=== PATIENT | male | born 1990 | race Caucasian/White ===

== ENCOUNTER 2016-11-27 20:10 | Emergency (ER) | payer SELFPAY ==
[~2016-11-27] VITALS: Ht 165.1 cm; Wt 60.0 kg
[2016-11-27] MEDS ORDERED: IOHEXOL 350 MG/ML 10 ML VIAL (for RAD DIAG) IVCONTRAST ONE (20:11)
[2016-11-27 20:12] VITALS: BP 143/86; PULSE 99; RESP 16; TEMP 98.6; O2SAT 99
[2016-11-27 21:44] VITALS: RESP 18
[2016-11-27] MEDS ORDERED: SODIUM CHLOR 0.9% 1000 ML INJ 1,000 ML IV ONE (21:45)
[2016-11-27] MEDS ORDERED: ONDANSETRON HCL 4 MG/2 ML VIAL IV ONE (21:45)
--- NOTE | 2016-11-27 21:47 | PD ---
HPI Chief Complaint: Abdominal Pain Time Seen by Provider: 21:41 Travel History International Travel<30 days: No Contact w/Intl Traveler<30days: No Traveled to known affect area: No History of Present Illness HPI The patient is a 26 year old male who presents to the [facility] emergency department with a history of abdominal pain that began 1 week ago. It has been constant. The pain is sharp in character. The patient reports the pain is a 4 out of 10 in severity when he is lying still and a 6 out of 10 in severity when he is moving around at work. He denies any trauma or injury associated with this. He reports that he has had loose stool 1 time per day associated with it. The patient reports that his stool is brown in color. He denies having any mucus or blood in his stool. He denies being on any antibiotic recently, having any sick contacts, foreign travel, or unusual food intake. He denies any recent camping. The patient reports that his appetite has been normal. His last meal was at 5 PM. Review of systems otherwise, the patient denies having any recent fevers, cough, congestion, neck pain, chest pain, shortness of breath, vomiting, urinary symptoms, testicle pain or swelling, or neurologic symptoms. [facility] Past Medical History Narrative Medical The patient's past medical history is significant for Head injury at 14 years of age. Medical History: Denies Significant Hx Tetanus Vaccination: > 5 Years Influenza Vaccination: No Past Surgical History Surgical History: No Previous Surgery Social History Alcohol Use: No Tobacco Use: No Substance Use: No Allergies-Medications (Allergen,Severity, Reaction): Coded Allergies: No Known Allergies (Verified Allergy, Unknown, 11/27/16) Reported Meds & Prescriptions Reported Meds & Active Scripts Active Flexeril (Cyclobenzaprine HCl) 5 Mg Tab 5 Mg PO TID PRN EC-Naprosyn (Naproxen) 500 Mg Tabdr 500 Mg PO BID PRN Narrative Medication None Review of Systems Except as stated in HPI: all other systems reviewed are Neg General / Constitutional: No: Fever Eyes: No: Visual changes HENT: No: Headaches Cardiovascular: No: Chest Pain or Discomfort Respiratory: No: Shortness of Breath Gastrointestinal: Positive: Diarrhea, Abdominal Pain, Changes in Bowel Habits, No: Nausea, Vomiting, Indigestion, Loss of Appetite Genitourinary: No: Urgency, Frequency, Dysuria, Flank Pain Musculoskeletal: No: Pain Skin: No Rash Neurologic: No: Weakness, Focal Abnormalities, Change in Mentation, Slurred Speech, Sensory Disturbance Psychiatric: No: Depression Endocrine: No: Polydipsia Hematologic/Lymphatic: No: Easy Bruising Physical Exam Narrative General: The patient is a well-developed well-nourished male in no acute distress Head and Neck exam: Head is normocephalic atraumatic. Eyes: EOMI, pupils are equal round and reactive to light. Nose: Midline septum with pink mucous membranes Mouth: Dentition unremarkable. Moist mucus membranes. Posterior oropharynx is not erythematous. No tonsillar hypertrophy. Uvula midline. Airway patent. Neck: No palpable lymphadenopathy. No nuchal rigidity. No thyromegaly. Cardiovascular: Regular rate and rhythm without murmurs, gallops, or rubs. No pulse deficit to the extremities. Lungs: Clear to auscultation bilaterally. No wheezes, rhonchi, or rales. Abdomen: Soft, with tenderness on palpation in the right lower quadrant of the abdomen. No guarding, rebound, or rigidity. Normal bowel sounds are audible. Negative Causey's sign. Extremities: No clubbing, cyanosis, or edema. 2+ pulses in all 4 extremities. No calf tenderness on palpation. Back: No spinous process tenderness to palpation. No costovertebral angle tenderness to palpation. Neurologic Exam: Grossly nonfocal. Skin Exam: No rash noted. Intact skin that is warm and dry. Data Data Last Documented VS Vital Signs Date Time Temp Pulse Resp B/P (MAP) Pulse Ox O2 Delivery O2 Flow Rate FiO2 11/28/16 01:01 11/27/16 23:35 84 16 100 Room Air 11/27/16 20:12 98.6 Orders Orders Complete Blood Count With Diff (11/27/16 21:42) Comprehensive Metabolic Panel (11/27/16 21:42) C-Reactive Protein (Crp) (11/27/16 21:42) Lipase (11/27/16 21:42) Urinalysis - C+S If Indicated (11/27/16 21:42) Magnesium (Mg) (11/27/16 21:42) Ct Abd/Pel W Iv Contrast(Rout) (11/27/16 21:42) Iv Access Insert/Monitor (11/27/16 21:42) Ecg Monitoring (11/27/16 21:42) Oximetry (11/27/16 21:42) Sodium Chlor 0.9% 1000 Ml Inj (Ns 1000 M (11/27/16 21:45) Ondansetron Inj (Zofran Inj) (11/27/16 21:45) Iohexol 350 Inj (Omnipaque 350 Inj) (11/27/16 20:11) Ketorolac Inj (Toradol Inj) (11/27/16 23:15) Sodium Chlor 0.9% 1000 Ml Inj (Ns 1000 M (11/28/16 00:00) Labs Laboratory Tests Test 11/27/16 21:50 11/28/16 00:10 White Blood Count 7.2 TH/MM3 Red Blood Count 4.94 MIL/MM3 Hemoglobin 15.3 GM/DL Hematocrit 44.2 % Mean Corpuscular Volume 89.4 FL Mean Corpuscular Hemoglobin 31.0 PG Mean Corpuscular Hemoglobin Concent 34.7 % Red Cell Distribution Width 12.5 % Platelet Count 293 TH/MM3 Mean Platelet Volume 8.2 FL Neutrophils (%) (Auto) 39.7 % Lymphocytes (%) (Auto) 51.1 % Monocytes (%) (Auto) 7.8 % Eosinophils (%) (Auto) 0.9 % Basophils (%) (Auto) 0.5 % Neutrophils # (Auto) 2.9 TH/MM3 Lymphocytes # (Auto) 3.7 TH/MM3 Monocytes # (Auto) 0.6 TH/MM3 Eosinophils # (Auto) 0.1 TH/MM3 Basophils # (Auto) 0.0 TH/MM3 CBC Comment DIFF FINAL Differential Comment Blood Urea Nitrogen 13 MG/DL Creatinine 1.08 MG/DL Random Glucose 91 MG/DL Total Protein 7.5 GM/DL Albumin 4.3 GM/DL Calcium Level 9.3 MG/DL Magnesium Level 2.2 MG/DL Alkaline Phosphatase 43 U/L Aspartate Amino Transf (AST/SGOT) 19 U/L Alanine Aminotransferase (ALT/SGPT) 38 U/L Total Bilirubin 0.3 MG/DL Sodium Level 137 MEQ/L Potassium Level 4.1 MEQ/L Chloride Level 103 MEQ/L Carbon Dioxide Level 28.6 MEQ/L Anion Gap 5 MEQ/L Estimat Glomerular Filtration Rate 83 ML/MIN C-Reactive Protein LESS THAN 0.29 MG/DL Lipase 188 U/L Urine Color LIGHT-YELLOW Urine Turbidity CLEAR Urine pH 7.5 Urine Specific [place] GREATER THAN 1.050 Urine Protein NEG mg/dL Urine Glucose (UA) NEG mg/dL Urine Ketones NEG mg/dL Urine Occult Blood NEG Urine Nitrite NEG Urine Bilirubin NEG Urine Urobilinogen LESS THAN 2.0 MG/DL Urine Leukocyte Esterase NEG Urine RBC LESS THAN 1 /hpf Microscopic Urinalysis Comment CULT NOT INDICATED MDM Medical Decision Making Medical Screen Exam Complete: Yes Emergency Medical Condition: Yes Medical Record Reviewed: Yes Interpretation(s) Last Impressions Abdomen/Pelvis CT 11/27/162141 Signed Impressions: Service Date/Time: Sunday, November 27, 2016 22:39 - CONCLUSION: Negative Sebastián Mejias MD Differential Diagnosis Appendicitis, versus colitis, versus mesenteric adenitis, versus musculoskeletal strain, versus kidney stone, versus urinary tract infection Narrative Course During the course of the patients emergency department visit, the patients history, examination, and differential diagnosis were reviewed with the patient. The patient was placed on a medical certification specialist with oximetry and frequent blood pressure monitoring. The patient had IV access obtained and blood work sent for analysis. The patient was initially provided normal saline 1 L IV fluid bolus, Toradol 30 mg IV, Zofran 4 mg IV, a repeat bolus of normal saline was given after the initial bolus. The patients laboratory studies were reviewed and remarkable for white count 7.2 , hemoglobin 15.3, platelets 293 with 51.1 lymphocytes, CMP is unremarkable, C- reactive protein less than 0.29, lipase 188, urinalysis shows concentrated urine otherwise unremarkable. Radiology studies were reviewed and remarkable for a CT scan of the abdomen and pelvis that shows no acute abnormality. The patient reports increased pain with movement, therefore muscle strain is certainly in the differential. The patient will be discharged home with a prescription for pain medication and a muscle relaxer. The patient is instructed regarding the importance of close follow-up with his primary care physician in the next 3 days for improvement. The patient is resting comfortably and feels better, is alert and in no distress. The patients results and examination findings were discussed with the patient. The repeat examination is unremarkable and benign. The history, exam, diagnostic testing, and current condition do not suggest any significant pathology to warrant further testing, continued ED treatment, admission, or surgical evaluation at this point. The vital signs have been stable. The patient does not have uncontrollable pain, intractable vomiting, or other significant symptoms. The patient's condition is stable and appropriate for discharge. The patient will pursue further outpatient evaluation with a primary care physician or other designated or consulting physician as indicated in the discharge instructions. The patient expressed understanding and was agreeable with this plan. Diagnosis Primary Impression: Abdominal pain Qualified Codes: R10.31 - Right lower quadrant pain Additional Impression: Diarrhea Qualified Codes: R19.7 - Diarrhea, unspecified Referrals: Primary Care Physician 3 days Patient Instructions: Abdominal Pain (ED), Acute Diarrhea (ED), General Instructions Med/Other Pt SpecificInfo: Prescription(s) given Scripts Cyclobenzaprine (Flexeril) 5 Mg Tab 5 MG PO TID Y for SPASM, #12 TAB 0 Refills Prov: Davida Berg MD 11/28/[address] (EC-Naprosyn) 500 Mg Tabdr 500 MG PO BID Y for PAIN GREATER THAN 5, #10 TAB 0 Refills Prov: Davida Berg MD 11/28/16 Disposition: 01 DISCHARGE HOME Condition: Stable Davida Berg MD Nov 27, 2016 21:47
[2016-11-27 21:58] LABS: AUTOMATED NEUTROPHIL # 2.9 TH/MM3 (1.8-7.7); BASOPHIL % 0.5 % (0.0-2.0); EOSINOPHIL # 0.1 TH/MM3 (0-0.4); EOSINOPHIL % 0.9 % (0.0-4.0); HEMATOCRIT 44.2 % (39.0-51.0); HEMOGLOBIN 15.3 GM/DL (13.0-17.0); LYMPH % 51.1 % (9.0-44.0); LYMPHOCYTE # 3.7 TH/MM3 (1.0-4.8); MEAN CELL VOLUME 89.4 FL (80.0-100.0); MEAN CORPUSCULAR HGB CONC 34.7 % (32.0-36.0); MEAN PLATELET VOLUME 8.2 FL (7.0-11.0); MONO % 7.8 % (0.0-8.0); MONOCYTE # 0.6 TH/MM3 (0-0.9); NEUT % 39.7 % (16.0-70.0); PLATELET COUNT 293 TH/MM3 (150-450); RED BLOOD COUNT 4.94 MIL/MM3 (4.50-5.90); RED CELL DISTRIBUTION WIDTH 12.5 % (11.6-17.2); WHITE BLOOD COUNT 7.2 TH/MM3 (4.0-11.0)
[2016-11-27 22:19] LABS: ALBUMIN 4.3 GM/DL (3.4-5.0); ALT (GPT) 38 U/L (12-78); AST (GOT) 19 U/L (15-37); BICARBONATE 28.6 MEQ/L (21.0-32.0); BLOOD UREA NITROGEN 13 MG/DL (7-18); C-REACTIVE PROTEIN LESS THAN 0.29 MG/DL (0.00-0.30); CALCIUM 9.3 MG/DL (8.5-10.1); CHLORIDE 103 MEQ/L (98-107); CREATININE 1.08 MG/DL (0.60-1.30); GLOMERULAR FILTRATION RATE 83 ML/MIN (>89); GLUCOSE,RANDOM 91 MG/DL (74-106); LIPASE 188 U/L (73-393); MAGNESIUM 2.2 MG/DL (1.5-2.5); SODIUM (NA) 137 MEQ/L (136-145)
[2016-11-27 22:21] LABS: ALKALINE PHOSPHATASE 43 U/L (45-117); TOTAL BILIRUBIN ADULT 0.3 MG/DL (0.2-1.0); TOTAL PROTEIN 7.5 GM/DL (6.4-8.2)
--- NOTE | 2016-11-27 23:02 | RADRPT ---
EXAM DATE/TIME: 11/27/2016 22:39 [facility] COMPARISON: No previous studies available for comparison. INDICATIONS : Right lower quadrant pain with diarrhea x1 week. IV CONTRAST: 100 cc Omnipaque 350 (iohexol) IV ORAL CONTRAST: No oral contrast ingested. RADIATION DOSE: 6.64 CTDIvol (mGy) MEDICAL HISTORY : None SURGICAL HISTORY : None. ENCOUNTER: Initial ACUITY: 1 week PAIN SCALE: 6/10 LOCATION: Right lower quadrant TECHNIQUE: Volumetric scanning of the abdomen and pelvis was performed. Using automated exposure control and ad justment of the mA and/or kV according to patient size, radiation dose was kept as low as reasonably achievable to obtain optimal diagnostic quality images. DICOM format image data is available electro nically for review and comparison. FINDINGS: LOWER LUNGS: The visualized lower lungs are clear. LIVER: Homogeneous density without lesion. There is no dilation of the biliary tree. No calcified gallston es. SPLEEN: Normal size without lesion. PANCREAS: Within normal limits. KIDNEYS: Normal in size and shape. There is no mass, stone or hydronephrosis. ADRENAL GLANDS: Within normal limits. VASCULAR: There is no aortic aneurysm. BOWEL/MESENTERY: The stomach, small bowel, and colon demonstrate no acute abnormality. There is no free intraperitone al air or fluid. Appendix is seen and appears normal ABDOMINAL WALL: Within normal limits. RETROPERITONEUM: There is no lymphadenopathy. BLADDER: No wall thickening or mass. REPRODUCTIVE: Within normal limits. INGUINAL: There is no lymphadenopathy or hernia. MUSCULOSKELETAL: Within normal limits for patient age. CONCLUSION: Negative Sebastián Mejias MD on November 27, 2016 at 22:58 Board Certified Radiologist. This report was verified electronically.
[2016-11-27] MEDS ORDERED: KETOROLAC TROMETHAMINE 30 MG/ML (IVP) VIAL IV PUSH ONE (23:15)
[2016-11-27 23:35] VITALS: BP 126/78; PULSE 84; RESP 16; O2SAT 100
[2016-11-28] MEDS ORDERED: SODIUM CHLOR 0.9% 1000 ML INJ 1,000 ML IV ONE
[2016-11-28 00:36] LABS: BILIRUBIN, URINE NEG (NEG); BLOOD, URINE NEG (NEG); GLUCOSE,URINE NEG (NEG); KETONE, URINE NEG (NEG); NITRITE,URINE NEG (NEG); PH, URINE 7.5 (5.0-8.5); URINE COLOR LIGHT-YELLOW (YELLW/STRAW); URINE LEUKOCYTE ESTERASE NEG (NEG)
[2016-11-28] MEDS ORDERED: EC-N500T PO (00:48)
[2016-11-28] MEDS ORDERED: CYCL5TAB PO (00:48)
== END 2016-11-28 01:02 | disposition home or self-care (01) ==
LOC: NEPE 20:10
DX: R10.31 Right lower quadrant pain (principal); R19.7 Diarrhea, unspecified
CPT/HCPCS: 74177; 80053; 81001; 83690; 83735; 85025; 86140; 96361; 96374; 96375; 99285; J1885; J2405; J7030; Q9967